=== PATIENT | female | born 1980 | race Caucasian/White ===

== ENCOUNTER → 2016-06-07 | Outpatient (CLI) | payer OTHER ==
[~2016-06-07] MED LIST: ARMOUR THYROID120 MG PO; ASCORBIC ACID500 M3 PO; CLARITIN-D 21 TABLET PO; IBUPROFEN800 MG PO; PRILOSEC OTC20 MG PO; TYLENOL EXTRA500 MG PO; ULTRAM50 MG PO; VITAMIN D310000 UNI1 PO
[2016-06-07 11:10] LABS: PROTHROMBIN TIME 10.3 (9.2-11.2); PTT 30.8 (25-32)
== END | disposition home or self-care (01) ==
LOC: OPR 09:57 → EDSTATUS 10:00 → OPR 10:00
PROVIDERS: Obstetrics & Gynecology Gynecology
PROC: 0DBW3ZX Excision of Peritoneum, Percutaneous Approach, Diagnostic (ICD-10-PCS; principal; 2016-06-07)
DX: N80.3 Endometriosis of pelvic peritoneum (principal)
CPT/HCPCS: 76942; 85610; 85730; 88305; J3010

== ENCOUNTER 2016-07-03 07:13 | Day surgery (SDC) | payer OTHER ==
[~2016-07-03] VITALS: Ht 157.5 cm; Wt 97.2 kg
[~2016-07-03 07:13] MED LIST changes: +ASCORBIC ACID100 MG PO
[2016-07-03 08:12] VITALS: BP 111/75
[2016-07-03 19:32] VITALS: BP 142/88
[2016-07-03 23:13] VITALS: BP 131/87
[2016-07-04 03:28] VITALS: BP 129/79
[2016-07-04 06:27] LABS: EOSINOPHIL (%) 0 % (0-5); HEMATOCRIT 33.9 % (36.0-46.0); IMMATURE GRANULOCYTE (%) 0.7 % (0.0-0.7); IMMATURE GRANULOCYTE COUNT 0.1 K/uL; INSTRUMENT ABS NEUTROPHIL CT 13.8 K/uL; LYMPHOCYTE COUNT 0.8 K/uL (1.0-2.8); MCHC 35.7 G/DL (30.0-36.0); MCV 81.3 FL (83-99); MEAN PLAT.VOLUME 11.8 uM^3 (9.5-12.4); MONOCYTE COUNT 0.8 K/uL (0-0.8); NEUTROPHIL (%) 89.2 % (45-76); NEUTROPHIL COUNT 13.8 K/uL (1.8-6.4); PLATELET COUNT 221 K/uL (156-360); RBC DIS.WIDTH-CV 11.9 % (11.8-14.6); RBC DIS.WIDTH-SD 34.6 % (39-53); RED BLOOD COUNT 4.17 M/uL (3.80-5.20)
[2016-07-04 06:31] LABS: WHITE BLOOD COUNT 15.5 K/uL (4.1-10.2)
[2016-07-04 06:49] LABS: ANION GAP 9 MEQ/L (2-14); CHLORIDE 107 MEQ/L (99-109); GFR ESTIMATE (CALCULATED) > 59 mL/min/; GLUCOSE 107 mg/dL (70-99); POTASSIUM 4.7 MEQ/L (3.7-5.4); SAMPLE HEMOLYSIS CHECK 0; SAMPLE ICTERIC CHECK 0; SAMPLE LIPEMIA CHECK 0; SODIUM 140 MEQ/L (136-147); UREA NITROGEN (BUN) 9 mg/dL (9-23)
[2016-07-04 08:15] VITALS: BP 129/78
[2016-07-04 11:05] VITALS: BP 122/67
[2016-07-04 15:45] VITALS: BP 121/59; BP 129/79
== END 2016-07-04 16:03 | disposition home or self-care (01) ==
LOC: SDC 07:13 → 2SOUTH 16:25 → 2EAST 19:24
PROVIDERS: Obstetrics & Gynecology Gynecology
PROC: 0TJB8ZZ Inspection of Bladder, Via Natural or Artificial Opening Endoscopic (ICD-10-PCS; principal; 2016-07-03)
PROC: 0UT94ZZ Resection of Uterus, Percutaneous Endoscopic Approach (ICD-10-PCS; principal; 2016-07-03)
PROC: 0WBF0ZX Excision of Abdominal Wall, Open Approach, Diagnostic (ICD-10-PCS; principal; 2016-07-03)
PROC: 0UTC4ZZ Resection of Cervix, Percutaneous Endoscopic Approach (ICD-10-PCS; principal; 2016-07-03)
PROC: 0UT54ZZ Resection of Right Fallopian Tube, Percutaneous Endoscopic Approach (ICD-10-PCS; principal; 2016-07-03)
PROC: BW201ZZ Computerized Tomography (CT Scan) of Abdomen using Low Osmolar Contrast (ICD-10-PCS; 2016-07-03)
DX: N92.0 Excessive and frequent menstruation with regular cycle (principal); N80.8 Other endometriosis; N94.6 Dysmenorrhea, unspecified; Z68.39 Body mass index [BMI] 39.0-39.9, adult; E66.09 Other obesity due to excess calories; E03.9 Hypothyroidism, unspecified; Z88.0 Allergy status to penicillin
CPT/HCPCS: 76705; 77012; 80048; 85025; 87086; 88305; 88307; G0378; J0131; J0690; J1100; J1170; J1644; J1885; J2250; J2405; J2710; J3010; J7120